=== PATIENT | female | born 1975 | race American Indian/Alaskan Native ===

== ENCOUNTER 2019-06-07 11:42 | Emergency (ER) | payer OTHER ==
--- NOTE | 2019-06-07 11:56 | Event Note ---
ED Screening Note Date of service: 06/07/19 Time: 11:52 ED Screening Note: 43 y/o female comes in for rlq pain times 3 days. History of appendicitis treated with medication still have organ. This initial assessment/diagnostic orders/clinical plan/treatment(s) is/are subject to change based on patients health status, clinical progression and re- assessment by fellow clinical providers in the ED. Further treatment and workup at subsequent clinical providers discretion. Patient/guardian urged not to elope from the ED as their condition may be serious if not clinically assessed and managed. Initial orders include:
[2019-06-07 12:23] VITALS: BP 124/77
[2019-06-07 12:24] LABS: Basophils % (Auto) 0.8 % (0.0-1.8); Eosinophils # (Auto) 0.1 K/mm3 (0.0-0.4); Eosinophils % (Auto) 1.9 % (0.0-4.3); Hematocrit 38.9 % (30.3-42.9); Hemoglobin 12.8 gm/dl (10.1-14.3); Lymphocytes # (Auto) 1.7 K/mm3 (1.2-5.4); Mean Corpuscular HGB Conc 33 % (30-34); Mean Corpuscular Volume 84 fl (79-97); Monocytes # (Auto) 0.5 K/mm3 (0.0-0.8); Monocytes % (Auto) 8.5 % (0.0-7.3); Platelet Count 235 K/mm3 (140-440); Red Blood Count 4.61 M/mm3 (3.65-5.03)
[2019-06-07] MEDS ORDERED: ZOFRAN IV ONE (12:32)
[2019-06-07] MEDS ORDERED: MORPHINE IV ONE ×2 (12:32→13:40)
--- NOTE | 2019-06-07 12:34 | Emergency Department Report ---
ED Abdominal Pain HPI - General Chief Complaint: Abdominal Pain Stated Complaint: NAUSEA/PAIN/ABD PAIN Time Seen by Provider: 06/07/19 12:31 Source: patient Mode of arrival: Ambulatory Limitations: No Limitations - History of Present Illness Initial Comments: Patient is 43 years old female with no significant past medical history. Patient presented to the ER complaining of right lower quadrant pain for the last 3 days associated with his nausea and vomiting. Patient denied any fever or chills. Patient stated that she had similar episode 4 years ago in [place] and she was diagnosed with appendicitis and treated with antibiotic no surgery at that time. Complaint: abdominal pain -: days(s) Location: RLQ Radiation: none Migration to: no migration Severity: moderate Severity scale (0 -10): 5 Consistency: constant - Related Data Allergies Allergy/AdvReac Type Severity Reaction Status Date / Time No Known Allergies Allergy Unverified 06/07/19 11:43 ED Review of Systems ROS: Stated complaint: NAUSEA/PAIN/ABD PAIN Other details as noted in HPI Comment: All other systems reviewed and negative Constitutional: denies: chills, fever Respiratory: denies: cough, shortness of breath, SOB with exertion Cardiovascular: denies: chest pain, palpitations Gastrointestinal: abdominal pain, nausea, vomiting. denies: diarrhea, consti pation, hematemesis, melena, hematochezia Genitourinary: denies: urgency, dysuria, frequency, hematuria Musculoskeletal: denies: back pain ED Past Medical Hx - Past Medical History Previous Medical History?: No Hx Asthma: No - Surgical History Past Surgical History?: Yes Additional Surgical History: Left adrenal gland, Endo sx - Social History Smoking Status: Current Every Day Smoker Substance Use Type: None ED Physical Exam - General Limitations: No Limitations General appearance: alert, in no apparent distress - Head Head exam: Present: atraumatic, normocephalic, normal inspection - Eye Eye exam: Present: normal appearance - ENT ENT exam: Present: normal exam, normal orophraynx, mucous membranes moist - Neck Neck exam: Present: normal inspection, full ROM. Absent: tenderness, meningismus - Respiratory Respiratory exam: Present: normal lung sounds bilaterally - Cardiovascular Cardiovascular Exam: Present: regular rate, normal rhythm, normal heart sounds - GI/Abdominal GI/Abdominal exam: Present: soft, normal bowel sounds. Absent: distended, tenderness, guarding, rebound, rigid, organomegaly, mass, bruit, pulsatile mass, hernia - Extremities Exam Extremities exam: Present: normal inspection, full ROM, normal capillary refill - Back Exam Back exam: Present: normal inspection, full ROM. Absent: CVA tenderness (R), CVA tenderness (L) - Neurological Exam Neurological exam: Present: alert, oriented X3, CN II-XII intact, reflexes normal - Skin Skin exam: Present: warm, intact, normal color ED Course Vital Signs 06/07/19 11:51 Temperature 98 F Pulse Rate 65 Respiratory 18 Rate Blood Pressure 124/77 O2 Sat by Pulse 100 Oximetry ED Medical Decision Making - Lab Data Result diagrams: 06/07/19 11:59 06/07/19 11:59 - Radiology Data Radiology results: report reviewed - Medical Decision Making Patient is 43 years old female with no significant past medical history. Patient presented to the ER complaining of right lower quadrant pain for the last 3 days associated with his nausea and vomiting. Patient denied any fever or chills. Patient stated that she had similar episode 4 years ago in [place] and she was diagnosed with appendicitis and treated with antibiotic no surgery at that time. Patient received morphine and Zofran. Patient stated that she is feeling much better. Abdominal pain is completely resolved. CT abdomen and pelvis showed no evidence of acute appendicitis or other acute intra-abdominal pathology. There is also multiple fibroids. 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 Patient also advised to returned to the emergency room if symptoms are not improved. Critical care attestation.: If time is entered above; I have spent that time in minutes in the direct care of this critically ill patient, excluding procedure time. ED Disposition Clinical Impression: Abdominal pain, Fibroid Disposition: -01 TO HOME OR SELFCARE Is pt being admited?: No Condition: Stable Instructions: Abdominal Pain (ED), Uterine Fibroids (ED) Referrals: ZAYRA BERRY MD [Primary Care Provider] - 3-5 Days ANA M DAVIS MD [Staff Physician] - 3-5 Days
[2019-06-07 12:37] LABS: HCG Qualitative,Urine Negative (Negative)
[2019-06-07 12:41] LABS: Bilirubin,Urine NEG (Negative); Blood,Urine MOD (Negative); Color,Urine Yellow (Yellow); Mucus,Urine FEW /HPF; Protein,Urine <15 mg/dL mg/dL (Negative); Urobilinogen,Urine < 2.0 mg/dL (<2.0)
[2019-06-07 12:48] LABS: Alanine Aminotransferase 10 units/L (7-56); Albumin 4.2 g/dL (3.9-5); BUN/Creatinine Ratio 12; Blood Urea Nitrogen 7 mg/dL (7-17); Calcium 8.8 mg/dL (8.4-10.2); Hemolysis Index 7
--- NOTE | 2019-06-07 15:56 | Cat Scan Report ---
CT ABDOMEN AND PELVIS WITH CONTRAST INDICATION / CLINICAL INFORMATION: abdominal pain. TECHNIQUE: Axial CT images were obtained through the abdomen and pelvis after 100 mL Omnipaque [address] scans at this location are performed using CT dose reduction for ALARA by means of automated exposure control. COMPARISON: None available. FINDINGS: LOWER CHEST: No significant abnormality. LIVER: In the right lobe anteriorly, there is a 1.3 cm heterogeneously enhancing, hypoechoic, round l esion on series 4 image 27. Additional subcentimeter hypoechoic lesions in the posterior and inferior right lobe on series 4 images 22 and 31 have a similar appearance but are too small to characterize. The liver is normal in size and contour. GALLBLADDER: No significant abnormality. BILE DUCTS: No significant abnormality. PANCREAS: No significant abnormality. SPLEEN: No significant abnormality. ADRENALS: No significant abnormality. RIGHT KIDNEY and URETER: No significant abnormality. LEFT KIDNEY and URETER: No significant abnormality. STOMACH and SMALL BOWEL: No significant abnormality. COLON: No significant abnormality. APPENDIX: Nondilated. Appears to contain multiple small calcified appendicoliths throughout its lengt h. No periappendiceal inflammatory changes. PERITONEUM: No free fluid. No free air. No fluid collection. LYMPH NODES: No significant adenopathy. AORTA and ARTERIES: No significant abnormality. IVC and VEINS: No significant abnormality. URINARY BLADDER: No significant abnormality. REPRODUCTIVE ORGANS: Several fibroids as large as 3.3 cm are present. No adnexal abnormality. ADDITIONAL FINDINGS: None. SKELETAL SYSTEM: No acute abnormality. No significant malalignment of the lower thoracic and lumbar s pine. Chronic right L5 pars defect is noted. IMPRESSION: 1. No acute abnormality. The appendix contains multiple calcified appendicoliths but is without evide nce of acute inflammation. 2. Multiple uterine fibroids. 3. Indeterminate liver lesions up to 1.3 cm may represent cysts or hemangiomas, but confirmatory live r protocol MRI is recommended on a nonemergent basis. Signer Name: Ger Cooper MD Signed: 06/07/2019 3:51 PM Workstation Name: [id number]
== END 2019-06-07 16:32 | disposition home or self-care (01) ==
LOC: ED 11:42
DX: D25.9 Leiomyoma of uterus, unspecified (principal); F17.200 Nicotine dependence, unspecified, uncomplicated
CPT/HCPCS: 36415; 74177; 80053; 81001; 81025; 85025; 96374; 96375; 96376; 99284; J2270; J2405; Q9967